=== PATIENT | female | born 1980 | race Hispanic/Latino ===

== ENCOUNTER 2018-11-29 12:09 | Emergency (ER) | payer OTHER ==
[~2018-11-29] VITALS: Ht 160 cm; Wt 94.8 kg
--- OUTSIDE RECORDS SUMMARY | 2018-11-29 12:11 | XMS REPORT | Continuity of Care Document ---
Author Author [facility] Interface Address Unknown Phone Unavailable Problems Problem Status Onset Date Classification Date Reported Comments Source Elevated blood-pressure reading without diagnosis of hypertension 07/04/2018 Diagnosis 07/04/2018 [facility] Body mass index 30+ - obesity 07/04/2018 Diagnosis 07/04/2018 [facility] Pain in throat 07/04/2018 Diagnosis 07/04/2018 [facility] Influenza-like symptoms 07/04/2018 Diagnosis 07/04/2018 [facility] Body Mass Index 30+ - Obesity 07/04/2018 Problem 07/04/2018 [facility] Pain in Throat 07/04/2018 Problem 07/04/2018 [facility] Influenza-like Symptoms 07/04/2018 Problem 07/04/2018 [facility] Elevated Blood-pressure Reading without Diagnosis of Hypertension 07/04/2018 Problem 07/04/2018 [facility] Exposure to Influenzavirus 07/04/2018 Problem 07/04/2018 [facility] Medications Medication Details Route Status Patient Instructions Ordering Provider Order Date Source benzonatate 200 MG Oral Capsule benzonatate 200 mg capsule Take 1 capsule 3 times a day by oral route as needed. Active [facility] Lidocaine Hydrochloride 20 MG/ML Mucous Membrane Topical Solution Lidocaine Viscous 2 % mucosal solution Take 15 mL every 3 hours by oral route as needed. Active [facility] Oseltamivir 75 MG Oral Capsule [Tamiflu] Tamiflu 75 mg capsule Take 1 capsule every day by oral route as directed for 10 days. Active [facility] Allergies, Adverse Reactions, Alerts Substance Category Reaction Severity Reaction type Status Date Reported Comments Source Immunizations Immunization Date Given Site Status Last Updated Comments Source Results Order Name Results Value Reference Range Date Interpretation Comments Source RESULT negative 07/04/2018 [facility] SWAB LOCATION Left and Right tonsillar pillars 07/04/2018 [facility] Influenza A negative 07/04/2018 [facility] Influenza B negative 07/04/2018 [facility] Vital Signs Vital Sign Value Date Comments Source Diastolic (mm Hg) 78 07/04/2018 [facility] Height 63 07/04/2018 [facility] Systolic (mm Hg) 125 07/04/2018 [facility] Weight 200 07/04/2018 [facility] Encounters Location Location Details Encounter Type Encounter Number Reason For Visit Attending Provider ADM Date DC Date Status Source [place] - [facility] - [id number] Mayfield, [employer] [facility]-C: [address] [place] [address], Ph. [id number] Gloria Mayfield 07/04/2018 [facility] Procedures Procedure Code Date Perfomer Comments Source
--- OUTSIDE RECORDS SUMMARY | 2018-11-29 12:12 | XMS REPORT | Encounter Summary ---
Author Organization Unknown Address [address] [place] [id number] Phone [phone] Reason for Visit Medical Complaint Instructions 1. Influenza-like symptoms rapid flu (A+B) benzonatate 200 mg capsule 2. Exposure to Influenzavirus Tamiflu 75 mg capsule 3. Pain in throat sore throat: care instructions Lidocaine Viscous 2 % mucosal solution rapid strep group A, throat 4. Body mass index 30+ - obesity learning about healthy weight 5. Elevated blood-pressure reading without diagnosis of hypertension elevated blood pressure: care instructions Discussion Note Pt is in NAD; Verbalizes understanding of all instructions with no questions at this time. Plan of Care Patient Instructions Stop Deliciamadeline damon. Gargle and spit viscous lidocaine as needed for sore throat as directed. Take tylenol over the counter for pain/headache/fever as per pacakge insert. Take benzonatate for cough as directed. Take Tamiflu (oseltamivir) as directed for the flu. Proper hydration and rest. Return to work/school if free of fever for 24-hrs. Do not share any utensils/cups, no kissing, recommend hand washing after coughing/sneezing/blowing nose and cover face when you do so. Take medications as prescribed. Follow up with your PCP within 2-3 days if symptoms worsen as discussed. Recommend follow a low sodium/fat/carb diet and exercise 30-45 mins/d 3-4 days a week once symptoms resolve. Recommend monitor BP at home and document, bring BP log to PCP for review. Reminders Provider Appointments None recorded. Lab Rapid Flu (A+B) 07/04/2018 [facility] Rapid Strep Group a, Throat 07/04/2018 [facility] Referral None recorded. Procedures None recorded. Surgeries None recorded. Imaging None recorded. Medications Name Start Date benzonatate 200 mg capsule Take 1 capsule 3 times a day by oral route as needed. Lidocaine Viscous 2 % mucosal solution Take 15 mL every 3 hours by oral route as needed. Tamiflu 75 mg capsule Take 1 capsule every day by oral route as directed for 10 days. Medications Administered None recorded. Vitals Height Weight BMI Blood Pressure 5 ft 3 in 200 lbs 35.4 kg/m2 (1) 128/80 mm[Hg] (2) 125/78 mm[Hg] Lab Results Date Name Specimen Result Interpretation Description Value Range Status Address Rapid Strep Group a, Throat Result negative [facility]: [address] [place] [address] Swab Location Left and Right tonsillar pillars [facility]: [address] [place] [address] Rapid Flu (A+B) Influenza a negative [facility]: [address] [place] [address] Influenza B negative [facility]: [address] [place] [address] Allergies Code Code System Name Reaction Severity Status Onset NKDA Problems Name Status Onset Date Source Body Mass Index 30+ - Obesity Active 07/04/2018 Pain in Throat Active 07/04/2018 Influenza-like Symptoms Active 07/04/2018 Elevated Blood-pressure Reading without Diagnosis of Hypertension Active 07/04/2018 Exposure to Influenzavirus Active 07/04/2018 Procedures None recorded. Vaccine List None recorded. Social History Smoking Status Never Smoker Past Encounters 07/04/2018 Influenza-like Symptoms; Exposure to Influenzavirus; Pain in Throat; Body Mass Index 30+ - Obesity; Elevated Blood-pressure Reading without Diagnosis of Hypertension Gloria Mayfield, [facility]: [address] [place] [address], Ph. History of Present Illness [id number] Reported By: Patient HPI: Duration: 2 days. Context: no tick/insect bites, no recent travel, no new medications, ill contacts. Associated Symptoms: no fever/chills, no headache, no muscle aches, no rash, no lethargy, cough; B/L ear popping sensation, sore throat, and chest congestion. Modifying Factors nothing gives relief Note:
Review of Systems:ROS as noted in the HPI Review of Systems Basic Reported By: Patient Physical Exam Adult Basic, Adult Female Complete Reported By: Patient Constitutional: General Appearance: obese. Level of Distress: NAD. Ambulation: ambulating normally Psychiatric: Mental Status: active and alert. Orientation: to time, to place, to person Eyes: Lids and Conjunctivae: non-injected, no discharge, no pallor. Corneas: grossly intact. Lens: clear [id number]-Throat: Ears: no lesions on external ear, no outer ear tenderness, EACs clear, TMs clear. Hearing: no hearing loss. Nose: no lesions on external nose, nares patent, no septal deviation, nasal passages clear, no sinus tenderness, post nasal drip; B/L NTs pink and edematous. Lips, Teeth, and Gums: no mouth or lip ulcers, no bleeding gums, normal dentition. Oropharynx: moist mucous membranes, no erythema, no exudates, tonsils not enlarged Neck: Neck: supple. Lymph Nodes: no cervical LAD Lungs: Respiratory effort: no dyspnea, no tachypnea, no use of accessory muscles, no intercostal retractions. Auscultation: breath sounds normal Cardiovascular: Heart Auscultation: RRR, no murmurs Neurologic: Gait and Station: normal gait, normal station. Cranial Nerves: grossly intact
[2018-11-29 13:58] VITALS: BP 153/97
== END 2018-11-29 14:03 | disposition home or self-care (01) ==
LOC: ER 12:09
DX: R42 Dizziness and giddiness (principal); I10 Essential (primary) hypertension
CPT/HCPCS: 93005; 99282

== ENCOUNTER 2021-12-31 14:25 | Emergency (ER) | payer BC, OTHER ==
[~2021-12-31] VITALS: Ht 160 cm; Wt 94.8 kg
[2021-12-31] MEDS ORDERED: ONDANSETRON HCL INJ 2MG/ML 2ML 2 MG/ML VIAL IV STA (14:38)
[2021-12-31] MEDS ORDERED: LISINOPRIL 10 MG TAB PO ONE (14:45)
[2021-12-31 14:59] LABS: BASOPHILS # (AUTO) 0.1 (0.0-0.1); BASOPHILS % 0.7 % (0.0-1.0); EOSINOPHILS # (AUTO) 0.4 (0.0-0.4); EOSINOPHILS % 4.8 % (0.0-6.0); HEMATOCRIT 44.4 % (34.2-44.1); HEMOGLOBIN 14.5 g/dL (12.0-16.0); LYMPHOCYTES # (AUTO) 1.9 (1.0-3.2); LYMPHOCYTES % 22.7 % (18.0-39.1); MEAN CORPUSCULAR HGB CONC 32.7 g/dL (31-35); MEAN CORPUSCULAR VOLUME 85.7 fL (81-99); MONOCYTES # (AUTO) 0.7 (0.2-0.8); MONOCYTES % 7.7 % (4.4-11.3); NEUTROPHILS # (AUTO) 5.4 (2.1-6.9); NEUTROPHILS % 63.7 % (38.7-80.0); PLATELET COUNT 316 x10e3/uL (140-360); RED BLOOD COUNT 5.18 x10e6/uL (3.6-5.1); RED CELL DISTRIBUTION WIDTH 12.2 % (11.7-14.4)
[2021-12-31 15:14] LABS: ALBUMIN 3.8 g/dL (3.5-5.0); ANION GAP 13.7 mmol/L (8-16); CALCIUM 8.2 mg/dL (8.4-10.2); CREATININE, SERUM 0.77 mg/dL (0.57-1.11); POTASSIUM 3.7 mmol/L (3.5-5.1)
== END 2021-12-31 16:36 | disposition home or self-care (01) ==
LOC: ER 14:27
DX: I10 Essential (primary) hypertension (principal); R11.2 Nausea with vomiting, unspecified; R42 Dizziness and giddiness; R51.9 Headache, unspecified
CPT/HCPCS: 36415; 71046; 80053; 84702; 85025; 93005; 99284; J2405